=== PATIENT | female | born 1965 | race Caucasian/White ===

== ENCOUNTER 2021-06-26 08:26 | Inpatient (IN) | payer OTHER ==
[~2021-06-26] VITALS: Ht 165.1 cm; Wt 120.3 kg
[2021-06-26] MEDS ORDERED: DEXTROSE 50% SYRINGE 50 ML IV ONE (09:02)
[2021-06-26 09:15] LABS: Basophils # (auto) 0.1 10 ^3/uL (0-0.2); Hemoglobin 7.8 g/dL (12.2-16.2); Lymphocytes # (auto) 2.2 10 ^3/uL (0.4-5.4); Monocytes # (auto) 0.9 10 ^3/uL (0-1.3); White Blood Cell 10.3 10^3/uL (4.4-10.8)
[2021-06-26 09:17] LABS: Basophils % (auto) 0.8 % (0.0-2.0); Eosinophils # (auto) 0.1 10 ^3/uL (0-0.8); Eosinophils % (auto) 1.3 % (0.0-7.0); Hematocrit 24.6 % (36.0-46.0); Lymphocytes % (auto) 21.4 % (10.0-50.0); Mean Corpuscular Hemoglobin 27.9 pg (28.0-32.0); Mean Corpuscular Hgb Conc. 31.7 g/dL (32.0-36.0); Monocytes % (auto) 8.6 % (0.0-12.0); Neutrophils % (auto) 67.9 % (37.0-80.0); Red Blood Cells 2.79 10^6/uL (4.0-5.20); Red Cell Distribution Width 18.7 % (11.8-14.3)
[2021-06-26 09:21] LABS: Albumin 2.4 g/dL (3.4-5.0); Calcium 8.1 mg/dL (8.5-10.1); Potassium 3.2 mmol/L (3.5-5.1)
[2021-06-26 09:28] LABS: BUN/Creatinine Ratio 13.2; Bilirubin, Total 0.2 mg/dL (0.2-1.0); Total Protein 7.2 g/dL (6.4-8.2)
[2021-06-26] MEDS ORDERED: DEXTROSE (50%) 50ML SYRG IV ONE (09:30)
[2021-06-26] MEDS ORDERED: OCTREOTIDE ACETATE 100 MCG/ML VL SUBCUT ONE (09:30)
[2021-06-26] MEDS ORDERED: D5W/SOD CHL 0.45%/KCL 20MEQ 1,000 ML IV ONE (09:30)
[2021-06-26] MEDS ORDERED: METF500S PO (10:07)
[2021-06-26] MEDS ORDERED: ATOR20TA50 PO (10:08)
[2021-06-26] MEDS ORDERED: LABE100T4 PO (10:09)
[2021-06-26] MEDS ORDERED: COLCPOW2 PO (10:10)
[2021-06-26] MEDS ORDERED: ALLO300T2 PO (10:11)
[2021-06-26] MEDS ORDERED: GLYB2.5T8 PO (10:13)
[2021-06-26] MEDS ORDERED: HYDR-4798 PO (10:48)
[2021-06-26] MEDS ORDERED: DEXTROSE (50%) 50ML SYRG IV PRN (11:15)
[2021-06-26] MEDS ORDERED: hydrALAZINE HCL 20 MG/ML VL IV PRN (11:15)
[2021-06-26] MEDS ORDERED: NITROGLYCERIN 0.4 MG SL TAB SL PRN (11:15)
[2021-06-26] MEDS ORDERED: ACETAMINOPHEN 325 MG TAB PO PRN (11:15)
[2021-06-26] MEDS ORDERED: MORPHINE SULFATE INJECTION 2 MG/ML SYRG IV PRN (11:15)
[2021-06-26] MEDS ORDERED: ONDANSETRON HCL 4 MG/2 ML VIAL IV PRN (11:15)
[2021-06-26] MEDS ORDERED: POTASSIUM CHL 20 Meq TABLET PO ONE (11:15)
[2021-06-26] MEDS ORDERED: DOCUSATE SOD 100 MG CAP PO PRN (11:15)
[2021-06-26] MEDS: HYDROcodone-ACET 5/325MG TAB PO PRN ×3 (11:46→22:45)
[2021-06-26 12:09] LABS: Urine Bacteria NONE SEEN /hpf (None Seen); Urine Blood Negative /uL (Negative); Urine Specific Gravity 1.005 (1.001-1.035); Urine WBC 3 /hpf (0 - 5)
[2021-06-26] MEDS: ACCU-CHEK COMFORT CURVE STRIP VI SCH ×4 (12:56→23:43)
[2021-06-26] MEDS: InsuLIN REG 1unit/0.01ml Soln (100units/ml) SC SCH ×4 (12:57→23:42)
[2021-06-26] MEDS ORDERED: cloNIDine HCL 0.1 MG TAB PO ONE (16:15)
[2021-06-26] MEDS: LABETALOL HCL 200 MG TAB PO SCH ×2 (16:28→21:49)
[2021-06-26] MEDS: SODIUM CHLOR 0.9% PF (SALINE LOCK) 10ML VIAL/SYR IV SCH ×2 (16:31→21:47)
[2021-06-26] MEDS ORDERED: hydrALAZINE HCL 25 MG TAB PO PRN ×2 (18:15→18:30)
[2021-06-26] MEDS: ATORVASTATIN 20 MG TAB PO SCH (21:47)
[2021-06-26] MEDS: ALLOPURINOL 300 MG TAB PO SCH (21:49)
[2021-06-26] MEDS: HEPARIN SODIUM (PORCINE) 5000 UNITS/ML 1ML VIAL SC SCH (21:50)
[2021-06-26 22:00] VITALS: BP 186/101
[2021-06-26] MEDS ORDERED: LABETALOL HCL 200 MG TAB PO SCH (22:00)
[2021-06-27] MEDS: HYDROcodone-ACET 5/325MG TAB PO PRN ×3 (01:16→10:18)
[2021-06-27] MEDS: InsuLIN REG 1unit/0.01ml Soln (100units/ml) SC SCH ×5 (04:00→20:54)
[2021-06-27] MEDS: ACCU-CHEK COMFORT CURVE STRIP VI SCH ×5 (04:24→20:53)
[2021-06-27 05:00] VITALS: BP 166/91
[2021-06-27] MEDS: SODIUM CHLOR 0.9% PF (SALINE LOCK) 10ML VIAL/SYR IV SCH ×3 (05:49→22:06)
[2021-06-27 06:37] LABS: Basophils # (auto) 0.2 10 ^3/uL (0-0.2); Eosinophils # (auto) 0.3 10 ^3/uL (0-0.8); Hemoglobin 7.4 g/dL (12.2-16.2); Nucleated Red Blood Cells % 0.1 %
[2021-06-27 06:41] LABS: Eosinophils % (auto) 2.9 % (0.0-7.0); Lymphocytes % (auto) 36.3 % (10.0-50.0); Mean Corpuscular Hemoglobin 29.5 pg (28.0-32.0); Mean Corpuscular Hgb Conc. 32.1 g/dL (32.0-36.0); Mean Corpuscular Volume 91.9 fL (80.0-100.0); Monocytes % (auto) 8.7 % (0.0-12.0); Neutrophils # (auto) 5.5 10 ^3/uL (1.6-8.6); Neutrophils % (auto) 50.1 % (37.0-80.0); Red Cell Distribution Width 18.4 % (11.8-14.3); White Blood Cell 11.1 10^3/uL (4.4-10.8)
[2021-06-27 07:03] LABS: Albumin 2.4 g/dL (3.4-5.0); BUN/Creatinine Ratio 17.6; Calcium 8.5 mg/dL (8.5-10.1); Potassium 3.7 mmol/L (3.5-5.1)
[2021-06-27 07:10] LABS: Bilirubin, Total 0.3 mg/dL (0.2-1.0); Total Protein 6.7 g/dL (6.4-8.2)
[2021-06-27 08:00] VITALS: BP 211/108
[2021-06-27] MEDS: ALLOPURINOL 300 MG TAB PO SCH ×2 (10:13→22:07)
[2021-06-27] MEDS: FAMOTIDINE (10MG/ML) 2ML VL IV SCH (10:13)
[2021-06-27] MEDS: LABETALOL HCL 200 MG TAB PO SCH (10:14)
[2021-06-27] MEDS: HEPARIN SODIUM (PORCINE) 5000 UNITS/ML 1ML VIAL SC SCH ×2 (10:17→22:09)
[2021-06-27 12:00] VITALS: BP 179/97
[2021-06-27] MEDS ORDERED: LOSARTAN POTASSIUM 50 MG TAB PO ONE (14:00)
[2021-06-27] MEDS ORDERED: METOPROLOL TARTRATE 25 MG TAB PO ONE (14:00)
[2021-06-27] MEDS ORDERED: ENALAPRILAT 1.25 MG/ML-1ML VIAL IV PRN (14:15)
[2021-06-27] MEDS: OXYCODONE W/ ACETAMINOPHEN 5/325MG TABLET PO PRN (14:24)
[2021-06-27 16:00] VITALS: BP 171/95
[2021-06-27 16:18] LABS: % Iron Saturation 6.4 % (15-50)
[2021-06-27] MEDS ORDERED: NIFEdipine ER 30 MG TAB PO ONE (17:00)
[2021-06-27] MEDS: ATORVASTATIN 20 MG TAB PO SCH (22:07)
[2021-06-27] MEDS: METOPROLOL TARTRATE 25 MG TAB PO SCH (22:08)
[2021-06-27 22:36] VITALS: BP 179/100
[2021-06-28] MEDS: ACCU-CHEK COMFORT CURVE STRIP VI SCH ×4 (01:27→11:36)
[2021-06-28] MEDS: OXYCODONE W/ ACETAMINOPHEN 5/325MG TABLET PO PRN ×2 (02:19→14:21)
[2021-06-28 05:07] VITALS: BP 149/89
[2021-06-28] MEDS: InsuLIN REG 1unit/0.01ml Soln (100units/ml) SC SCH ×4 (05:14→11:36)
[2021-06-28] MEDS: HYDROcodone-ACET 5/325MG TAB PO PRN (05:15)
[2021-06-28] MEDS: SODIUM CHLOR 0.9% PF (SALINE LOCK) 10ML VIAL/SYR IV SCH ×2 (05:16→14:22)
[2021-06-28 05:57] LABS: Eosinophils # (auto) 0.4 10 ^3/uL (0-0.8); Red Cell Distribution Width 19.1 % (11.8-14.3)
[2021-06-28 06:00] LABS: Basophils # (auto) 0.1 10 ^3/uL (0-0.2); Eosinophils % (auto) 2.8 % (0.0-7.0); Hematocrit 28.1 % (36.0-46.0); Hemoglobin 8.9 g/dL (12.2-16.2); Lymphocytes # (auto) 2.4 10 ^3/uL (0.4-5.4); Lymphocytes % (auto) 19.1 % (10.0-50.0); Mean Corpuscular Hemoglobin 27.8 pg (28.0-32.0); Mean Corpuscular Hgb Conc. 31.6 g/dL (32.0-36.0); Mean Corpuscular Volume 88.1 fL (80.0-100.0); Monocytes % (auto) 7.4 % (0.0-12.0); Neutrophils # (auto) 8.9 10 ^3/uL (1.6-8.6); Neutrophils % (auto) 69.7 % (37.0-80.0); Red Blood Cells 3.19 10^6/uL (4.0-5.20); White Blood Cell 12.8 10^3/uL (4.4-10.8)
[2021-06-28 08:00] VITALS: BP 148/78
[2021-06-28] MEDS: FAMOTIDINE (10MG/ML) 2ML VL IV SCH (09:40)
[2021-06-28] MEDS: ALLOPURINOL 300 MG TAB PO SCH (09:41)
[2021-06-28] MEDS: METOPROLOL TARTRATE 25 MG TAB PO SCH (09:42)
[2021-06-28] MEDS ORDERED: NIFEdipine ER 30 MG TAB PO SCH (10:00)
[2021-06-28] MEDS ORDERED: LOSARTAN POTASSIUM 50 MG TAB PO SCH (10:00)
[2021-06-28 12:00] VITALS: BP 152/89
[2021-06-28] MEDS: HEPARIN SODIUM (PORCINE) 5000 UNITS/ML 1ML VIAL SC SCH (12:24)
[2021-06-28 13:57] LABS: Calcium 8.8 mg/dL (8.5-10.1); Magnesium 2.4 mg/dL (1.6-2.6); Potassium 3.8 mmol/L (3.5-5.1)
[2021-06-28 14:28] LABS: BUN/Creatinine Ratio 15.1
[2021-06-28] MEDS ORDERED: HYDR25TA5 PO (15:05)
[2021-06-28] MEDS ORDERED: LOSA-39 PO (15:05)
[2021-06-28] MEDS ORDERED: MET25T PO (15:05)
[2021-06-28] MEDS ORDERED: FER325T PO (15:05)
[2021-06-28] MEDS ORDERED: PANT40TA2 PO (15:05)
[2021-06-28] MEDS ORDERED: ASPI-378 PO (15:08)
[2021-06-28 16:00] VITALS: BP 152/89
[2021-06-28 16:53] VITALS: BP 152/89
[2021-06-30 09:55] LABS: Folate (Folic Acid) 9.66 ng/mL (5.38-24)
== END 2021-06-28 18:26 | disposition home or self-care (01) | DRG 638 ==
LOC: EDBD 08:26 → ER 08:26 → OVERFLOW 11:12 → WEST WING 14:50 → TELE-WESTW 06-27 17:12
PROVIDERS: ADMIT Nurse Practitioner Family; ATTEND Internal Medicine
DX: E11.649 Type 2 diabetes mellitus with hypoglycemia without coma (principal); R65.10 Systemic inflammatory response syndrome (SIRS) of non-infectious origin without acute organ dysfunction; Z68.41 Body mass index [BMI] 40.0-44.9, adult; I16.1 Hypertensive emergency; D75.839 Thrombocytosis, unspecified; D64.9 Anemia, unspecified; E87.6 Hypokalemia; E66.01 Morbid (severe) obesity due to excess calories; E88.09 Other disorders of plasma-protein metabolism, not elsewhere classified; Z20.822 Contact with and (suspected) exposure to COVID-19; I10 Essential (primary) hypertension; M10.9 Gout, unspecified; E78.5 Hyperlipidemia, unspecified; Z98.51 Tubal ligation status
CPT/HCPCS: 36415; 70450; 80048; 80053; 80061; 81001; 82306; 82607; 82746; 82962; 83036; 83540; 83550; 83735; 84443; 84484; 85025; 87426; 93005; 96361; 96374; G0378; J1815; J3490

== ENCOUNTER 2021-09-22 10:36 | Inpatient (IN) | payer OTHER ==
[~2021-09-22] VITALS: Ht 167.6 cm; Wt 114.8 kg
[~2021-09-22 10:36] MED LIST: ALLO300T2 PO; ATOR20TA50 PO; COLCPOW2 PO; HYDR-4798 PO; HYDR25TA5 PO; LOSA-39 PO; MET25T PO; METF500S PO; PANT40TA2 PO
[2021-09-22] MEDS ORDERED: SODIUM CHLORIDE 0.9% 1,000 ML IV ONE ×2 (10:45→13:45)
[2021-09-22 11:48] LABS: Hemoglobin 9.5 g/dL (12.2-16.2); Mean Corpuscular Hemoglobin 28.8 pg (28.0-32.0); Mean Corpuscular Hgb Conc. 31.6 g/dL (32.0-36.0)
[2021-09-22 12:01] LABS: Albumin 2.6 g/dL (3.4-5.0); Anion Gap 22 (5-15); Calcium 9.5 mg/dL (8.5-10.1); Carbon Dioxide 10 mmol/L (21-32); Chloride 92 mmol/L (98-107); Glucose 264 mg/dL (74-106); Magnesium 2.2 mg/dL (1.6-2.6); Potassium 3.5 mmol/L (3.5-5.1); Sodium 124 mmol/L (136-145)
[2021-09-22 12:06] LABS: Alanine Aminotransferase 19 U/L (13-56); Alkaline Phosphatase 98 U/L (45-117); Aspartate Aminotransferase 29 U/L (15-37); BUN/Creatinine Ratio 14.6; Bilirubin, Total 0.3 mg/dL (0.2-1.0); Blood Alcohol < 3.0 mg/dL (0-5); GFR African American 9 mL/min; GFR Non-African American 8 mL/min; Total Protein 7.7 g/dL (6.4-8.2)
[2021-09-22 12:22] LABS: Red Cell Distribution Width 22.1 % (11.8-14.3)
[2021-09-22 12:27] LABS: Basophils % (manual) 0 (0.0-2.0); Blast Cells 0; Eosinophils % (manual) 0 (0-7); Metamyelocytes % 0; Myelocytes % 0; Promyelocytes % 0; Reactive Lymphocytes 0
[2021-09-22 12:39] LABS: Blood Urea Nitrogen 88 mg/dL (7-18)
[2021-09-22 13:20] LABS: Band Neutrophils % (manual) 5; Lymphocytes % (manual) 1 (10.0-50.0); Monocytes % (manual) 1 (0-12)
[2021-09-22] MEDS ORDERED: AZITHROMYCIN 500MG/ 250ML 250 ML IV ONE (13:45)
[2021-09-22] MEDS ORDERED: cefTRIAXone 1GM/50ML D5W 50 ML IV ONE (13:45)
[2021-09-22 13:59] LABS: Urine Bacteria NONE SEEN /hpf (None Seen); Urine Blood 2+ /uL (Negative); Urine Specific Gravity 1.016 (1.001-1.035); Urine WBC 73 /hpf (0 - 5)
[2021-09-22] MEDS ORDERED: DEXTROSE (50%) 50ML SYRG IV PRN (15:30)
[2021-09-22] MEDS: SODIUM CHLORIDE 0.9% 1,000 ML IV SCH ×2 (15:30→23:30)
[2021-09-22] MEDS ORDERED: SODIUM CHLORIDE 0.9% 1,000 ML IV SCH (15:30)
[2021-09-22] MEDS ORDERED: ALBUTEROL SULF 2.5 MG/0.5ML(0.5%) NEB SOLN NEB PRN (16:00)
[2021-09-22 16:14] LABS: Cholesterol 165 mg/dL (< 200); HDL Cholesterol 27 mg/dL (40-59); LDL Cholesterol 95 mg/dL (< 100); Triglycerides 295 mg/dL (< 150)
[2021-09-22] MEDS ORDERED: NYSTATIN TOPICAL POWDER 15GM TOP ONE (16:15)
[2021-09-22] MEDS: ACCU-CHEK COMFORT CURVE STRIP VI SCH (17:51)
[2021-09-22] MEDS: InsuLIN REG 1unit/0.01ml Soln (100units/ml) SC SCH (18:07)
[2021-09-22 19:30] VITALS: BP 123/69
[2021-09-22 22:00] VITALS: BP 101/54
[2021-09-22] MEDS: NYSTATIN TOPICAL POWDER 15GM TOP SCH (22:00)
[2021-09-22 22:18] VITALS: BP 110/56
[2021-09-23] MEDS: ACCU-CHEK COMFORT CURVE STRIP VI SCH ×4 (00:33→18:01)
[2021-09-23] MEDS: HEPARIN SODIUM (PORCINE) 5000 UNITS/ML 1ML VIAL SC SCH ×3 (00:34→21:01)
[2021-09-23] MEDS: InsuLIN REG 1unit/0.01ml Soln (100units/ml) SC SCH ×4 (00:34→18:06)
[2021-09-23 05:00] VITALS: BP 126/59
[2021-09-23 06:03] LABS: Eosinophils # (auto) 0.1 10 ^3/uL (0-0.8); Lymphocytes # (auto) 1.2 10 ^3/uL (0.4-5.4); Monocytes # (auto) 1.2 10 ^3/uL (0-1.3)
[2021-09-23 06:07] LABS: Basophils # (auto) 0.1 10 ^3/uL (0-0.2); Basophils % (auto) 0.3 % (0.0-2.0); Eosinophils % (auto) 0.6 % (0.0-7.0); Hematocrit 26.7 % (36.0-46.0); Hemoglobin 8.5 g/dL (12.2-16.2); Mean Corpuscular Hemoglobin 28.9 pg (28.0-32.0); Mean Corpuscular Hgb Conc. 31.7 g/dL (32.0-36.0); Mean Corpuscular Volume 91.1 fL (80.0-100.0); Monocytes % (auto) 4.9 % (0.0-12.0); Neutrophils # (auto) 21.7 10 ^3/uL (1.6-8.6); Neutrophils % (auto) 89.2 % (37.0-80.0); Nucleated Red Blood Cells % 0.2 %; Red Blood Cells 2.93 10^6/uL (4.0-5.20); White Blood Cell 24.3 10^3/uL (4.4-10.8)
[2021-09-23 06:09] LABS: Red Cell Distribution Width 22.2 % (11.8-14.3)
[2021-09-23 06:18] LABS: Albumin 2.2 g/dL (3.4-5.0); Calcium 8.6 mg/dL (8.5-10.1)
[2021-09-23 06:21] LABS: BUN/Creatinine Ratio 13.9
[2021-09-23 06:29] LABS: Bilirubin, Total 0.2 mg/dL (0.2-1.0); Total Protein 6.5 g/dL (6.4-8.2)
[2021-09-23 09:00] VITALS: BP 138/73
[2021-09-23] MEDS: cefTRIAXone 1GM/50ML D5W 50 ML IV SCH (09:45)
[2021-09-23] MEDS: AZITHROMYCIN 500MG/ 250ML 250 ML IV SCH (11:10)
[2021-09-23] MEDS: NYSTATIN TOPICAL POWDER 15GM TOP SCH ×2 (11:11→21:01)
[2021-09-23] MEDS: SODIUM CHLORIDE 0.9% 1,000 ML IV SCH ×3 (11:11→23:30)
[2021-09-23] MEDS ORDERED: PERCOT PO (12:24)
[2021-09-23] MEDS ORDERED: LOSA-69 PO (12:24)
[2021-09-23] MEDS ORDERED: COLC1TAB3 PO (12:24)
[2021-09-23] MEDS ORDERED: POTASSIUM CHL 20 Meq TABLET PO ONE (12:45)
[2021-09-23 13:00] VITALS: BP 151/79
[2021-09-23] MEDS: HYDROcodone-ACET 5/325MG TAB PO PRN (13:48)
[2021-09-23 17:00] VITALS: BP 136/76
[2021-09-23] MEDS: SUCRALFATE 1 GM/10 ML ORAL SUSP PO SCH ×2 (18:01→21:01)
[2021-09-23] MEDS: PANTOPRAZOLE 40 MG TAB PO SCH (21:01)
[2021-09-23 22:00] VITALS: BP 137/61
[2021-09-24 05:00] VITALS: BP 123/81
[2021-09-24] MEDS: SUCRALFATE 1 GM/10 ML ORAL SUSP PO SCH ×4 (06:00→21:21)
[2021-09-24] MEDS: ACCU-CHEK COMFORT CURVE STRIP VI SCH ×4 (06:00→17:42)
[2021-09-24] MEDS: InsuLIN REG 1unit/0.01ml Soln (100units/ml) SC SCH ×4 (06:02→17:43)
[2021-09-24] MEDS: HYDROcodone-ACET 5/325MG TAB PO PRN (07:08)
[2021-09-24 09:00] VITALS: BP 154/84
[2021-09-24] MEDS: cefTRIAXone 1GM/50ML D5W 50 ML IV SCH (09:19)
[2021-09-24] MEDS: PANTOPRAZOLE 40 MG TAB PO SCH ×2 (09:19→21:21)
[2021-09-24] MEDS: HEPARIN SODIUM (PORCINE) 5000 UNITS/ML 1ML VIAL SC SCH ×2 (09:20→21:23)
[2021-09-24] MEDS: NYSTATIN TOPICAL POWDER 15GM TOP SCH ×2 (09:21→21:30)
[2021-09-24] MEDS: SODIUM CHLORIDE 0.9% 1,000 ML IV SCH ×2 (09:22→17:44)
[2021-09-24] MEDS: AZITHROMYCIN 500MG/ 250ML 250 ML IV SCH (12:13)
[2021-09-24] MEDS: OXYCODONE W/ ACETAMINOPHEN 5/325MG TABLET PO PRN ×3 (12:15→20:56)
[2021-09-24 12:35] VITALS: BP 154/77
[2021-09-24 12:53] LABS: Calcium 8.3 mg/dL (8.5-10.1)
[2021-09-24 12:55] LABS: BUN/Creatinine Ratio 16.5
[2021-09-24 13:06] LABS: Potassium 2.7 mmol/L (3.5-5.1)
[2021-09-24] MEDS ORDERED: POTASSIUM CHLORIDE 60 MEQ, LIDOCAINE 1% (LOCAL ANESTH.) 6 ML in SODIUM CHL 0.9% 500 ML IV ONE (13:30)
[2021-09-24 16:42] VITALS: BP 140/76
[2021-09-24 22:00] VITALS: BP 163/80
[2021-09-25] MEDS: ACCU-CHEK COMFORT CURVE STRIP VI SCH ×5 (00:04→23:27)
[2021-09-25] MEDS: SODIUM CHLORIDE 0.9% 1,000 ML IV SCH ×4 (02:45→23:02)
[2021-09-25] MEDS: OXYCODONE W/ ACETAMINOPHEN 5/325MG TABLET PO PRN ×4 (03:21→23:27)
[2021-09-25 04:00] VITALS: BP 131/67
[2021-09-25 05:00] VITALS: BP 131/67
[2021-09-25] MEDS: InsuLIN REG 1unit/0.01ml Soln (100units/ml) SC SCH ×5 (06:00→18:34)
[2021-09-25] MEDS: SUCRALFATE 1 GM/10 ML ORAL SUSP PO SCH ×4 (07:00→22:45)
[2021-09-25 07:08] LABS: Basophils # (auto) 0.1 10 ^3/uL (0-0.2)
[2021-09-25 07:11] LABS: Basophils % (auto) 0.7 % (0.0-2.0); Eosinophils # (auto) 0.5 10 ^3/uL (0-0.8); Hematocrit 23.1 % (36.0-46.0); Hemoglobin 7.3 g/dL (12.2-16.2); Lymphocytes # (auto) 0.9 10 ^3/uL (0.4-5.4); Lymphocytes % (auto) 5.7 % (10.0-50.0); Mean Corpuscular Hemoglobin 29.3 pg (28.0-32.0); Mean Corpuscular Hgb Conc. 31.7 g/dL (32.0-36.0); Mean Corpuscular Volume 92.3 fL (80.0-100.0); Monocytes # (auto) 1.6 10 ^3/uL (0-1.3); Monocytes % (auto) 9.8 % (0.0-12.0); Neutrophils # (auto) 13.3 10 ^3/uL (1.6-8.6); Neutrophils % (auto) 80.8 % (37.0-80.0); White Blood Cell 16.5 10^3/uL (4.4-10.8)
[2021-09-25 07:40] LABS: Albumin 2.1 g/dL (3.4-5.0); Calcium 9.1 mg/dL (8.5-10.1); Potassium 3.2 mmol/L (3.5-5.1)
[2021-09-25 07:42] LABS: BUN/Creatinine Ratio 19.1
[2021-09-25 07:45] LABS: Bilirubin, Total 0.2 mg/dL (0.2-1.0); Total Protein 6.5 g/dL (6.4-8.2)
[2021-09-25 08:02] LABS: Red Cell Distribution Width 22.3 % (11.8-14.3)
[2021-09-25 08:04] LABS: INR 0.97 (0.9-1.15)
[2021-09-25] MEDS ORDERED: MORPHINE SULFATE 4 MG/ML SYR/VIAL IV PRN (08:15)
[2021-09-25] MEDS ORDERED: METOCLOPRAMIDE HCL 5MG/ml INJ 2ml VIAL IV PRN (08:15)
[2021-09-25] MEDS ORDERED: HYDROmorphone HCL 2 MG/ML VL/or syr IV PRN (08:15)
[2021-09-25 08:40] VITALS: BP 167/88
[2021-09-25] MEDS: cefTRIAXone 1GM/50ML D5W 50 ML IV SCH (09:00)
[2021-09-25] MEDS ORDERED: ONDANSETRON HCL 4 MG/2 ML VIAL ONE (09:02)
[2021-09-25] MEDS ORDERED: PROPOFOL 10 MG/ML 20 ML IV ONE (09:02)
[2021-09-25] MEDS ORDERED: SODIUM CHLORIDE LOCK 10 ML ONE (09:02)
[2021-09-25] MEDS ORDERED: DexAMETHasone SOD PHOS 10MG/1ML VIAL INJ ONE (09:02)
[2021-09-25] MEDS ORDERED: MIDAZOLAM HCL 2MG/2ML 2ml VIAL (1mg/ml) ONE (09:02)
[2021-09-25] MEDS ORDERED: fentaNYL CITRATE 100 MCG/2 ML VL ONE (09:02)
[2021-09-25] MEDS: NYSTATIN TOPICAL POWDER 15GM TOP SCH ×2 (10:00→23:02)
[2021-09-25] MEDS: HEPARIN SODIUM (PORCINE) 5000 UNITS/ML 1ML VIAL SC SCH ×2 (10:00→22:47)
[2021-09-25] MEDS: AZITHROMYCIN 500MG/ 250ML 250 ML IV SCH (10:00)
[2021-09-25] MEDS: PANTOPRAZOLE 40 MG TAB PO SCH ×2 (11:16→22:45)
[2021-09-25] MEDS: SODIUM BICARBONATE 650 MG TAB PO SCH ×3 (11:17→22:45)
[2021-09-25] MEDS: POTASSIUM CHL 20MEQ/100ML 100 ML IV SCH ×2 (11:17→14:41)
[2021-09-25 12:50] VITALS: BP 167/91
[2021-09-25 16:45] VITALS: BP 165/91
[2021-09-25 21:44] VITALS: BP 145/81
[2021-09-26] MEDS: InsuLIN REG 1unit/0.01ml Soln (100units/ml) SC SCH ×5 (00:11→23:45)
[2021-09-26 04:38] VITALS: BP 142/76
[2021-09-26] MEDS: SODIUM BICARBONATE 650 MG TAB PO SCH ×4 (05:33→22:10)
[2021-09-26] MEDS: ACCU-CHEK COMFORT CURVE STRIP VI SCH ×4 (05:33→23:46)
[2021-09-26] MEDS: OXYCODONE W/ ACETAMINOPHEN 5/325MG TABLET PO PRN ×4 (05:34→23:28)
[2021-09-26] MEDS: SUCRALFATE 1 GM/10 ML ORAL SUSP PO SCH ×4 (06:19→22:10)
[2021-09-26] MEDS: SODIUM CHLORIDE 0.9% 1,000 ML IV SCH ×3 (06:20→22:10)
[2021-09-26 07:05] LABS: Protein, Urine 32.1 mg/dL (0.0-11.9)
[2021-09-26 09:00] VITALS: BP 133/85
[2021-09-26] MEDS: cefTRIAXone 1GM/50ML D5W 50 ML IV SCH (10:31)
[2021-09-26] MEDS: AZITHROMYCIN 500MG/ 250ML 250 ML IV SCH (10:31)
[2021-09-26] MEDS: PANTOPRAZOLE 40 MG TAB PO SCH ×2 (10:33→22:10)
[2021-09-26] MEDS: FLUCONAZOLE 100 MG TAB PO SCH (10:33)
[2021-09-26] MEDS: NYSTATIN TOPICAL POWDER 15GM TOP SCH ×2 (10:34→22:10)
[2021-09-26] MEDS: HEPARIN SODIUM (PORCINE) 5000 UNITS/ML 1ML VIAL SC SCH ×2 (10:42→22:21)
[2021-09-26] MEDS: ONDANSETRON HCL 4 MG/2 ML VIAL IV PRN ×3 (12:07→23:28)
[2021-09-26 12:45] LABS: BUN/Creatinine Ratio 18.7; Calcium 8.6 mg/dL (8.5-10.1)
[2021-09-26 13:00] VITALS: BP 141/75
[2021-09-26 17:00] VITALS: BP 157/90
[2021-09-26 21:33] VITALS: BP 149/90
[2021-09-27 05:00] VITALS: BP 160/89
[2021-09-27 05:35] LABS: Hematocrit 22.4 % (36.0-46.0); Hemoglobin 7.5 g/dL (12.2-16.2); Mean Corpuscular Hemoglobin 30.9 pg (28.0-32.0); Mean Corpuscular Hgb Conc. 33.7 g/dL (32.0-36.0); Mean Corpuscular Volume 91.6 fL (80.0-100.0); Red Blood Cells 2.44 10^6/uL (4.0-5.20); White Blood Cell 17.2 10^3/uL (4.4-10.8)
[2021-09-27] MEDS: ONDANSETRON HCL 4 MG/2 ML VIAL IV PRN ×3 (05:46→18:42)
[2021-09-27] MEDS: SODIUM BICARBONATE 650 MG TAB PO SCH ×4 (05:46→21:49)
[2021-09-27] MEDS: OXYCODONE W/ ACETAMINOPHEN 5/325MG TABLET PO PRN ×3 (05:46→18:41)
[2021-09-27 05:47] LABS: Red Cell Distribution Width 21.9 % (11.8-14.3)
[2021-09-27] MEDS: SUCRALFATE 1 GM/10 ML ORAL SUSP PO SCH ×4 (05:47→21:49)
[2021-09-27 05:48] LABS: Basophils % (manual) 0 (0.0-2.0); Blast Cells 0; Eosinophils % (manual) 0 (0-7); Myelocytes % 0; Promyelocytes % 0; Reactive Lymphocytes 0
[2021-09-27] MEDS: ACCU-CHEK COMFORT CURVE STRIP VI SCH ×3 (05:58→16:56)
[2021-09-27] MEDS: InsuLIN REG 1unit/0.01ml Soln (100units/ml) SC SCH ×3 (05:58→18:00)
[2021-09-27 05:59] VITALS: BP 153/87
[2021-09-27 06:10] LABS: Potassium 3.4 mmol/L (3.5-5.1)
[2021-09-27 06:15] LABS: BUN/Creatinine Ratio 17.3; Calcium 8.8 mg/dL (8.5-10.1)
[2021-09-27 06:18] LABS: Bilirubin, Total 0.2 mg/dL (0.2-1.0); Total Protein 6.4 g/dL (6.4-8.2)
[2021-09-27] MEDS: SODIUM CHLORIDE 0.9% 1,000 ML IV SCH ×3 (07:00→21:50)
[2021-09-27 07:57] LABS: Band Neutrophils % (manual) 7; Lymphocytes % (manual) 10 (10.0-50.0); Metamyelocytes % 1; Monocytes % (manual) 8 (0-12)
[2021-09-27 09:00] VITALS: BP_SYST 106; BP_SYST 148; BP_DIAS 69; BP_DIAS 91
[2021-09-27] MEDS: NYSTATIN TOPICAL POWDER 15GM TOP SCH ×2 (10:00→21:50)
[2021-09-27] MEDS: PANTOPRAZOLE 40 MG TAB PO SCH ×2 (10:44→21:49)
[2021-09-27] MEDS: FLUCONAZOLE 100 MG TAB PO SCH (10:45)
[2021-09-27] MEDS: cefTRIAXone 1GM/50ML D5W 50 ML IV SCH (10:46)
[2021-09-27] MEDS: AZITHROMYCIN 500MG/ 250ML 250 ML IV SCH (10:47)
[2021-09-27] MEDS: HEPARIN SODIUM (PORCINE) 5000 UNITS/ML 1ML VIAL SC SCH ×2 (11:56→21:55)
[2021-09-27 13:00] VITALS: BP 173/97
[2021-09-27 17:00] VITALS: BP 161/88
[2021-09-27 22:00] VITALS: BP 165/89
[2021-09-28] MEDS: ONDANSETRON HCL 4 MG/2 ML VIAL IV PRN ×4 (00:29→23:40)
[2021-09-28] MEDS: OXYCODONE W/ ACETAMINOPHEN 5/325MG TABLET PO PRN ×5 (00:29→23:40)
[2021-09-28] MEDS: ACCU-CHEK COMFORT CURVE STRIP VI SCH ×5 (00:29→23:27)
[2021-09-28 00:31] VITALS: BP 154/86
[2021-09-28 05:17] VITALS: BP 149/82
[2021-09-28] MEDS: SODIUM BICARBONATE 650 MG TAB PO SCH ×4 (05:58→21:11)
[2021-09-28] MEDS: SUCRALFATE 1 GM/10 ML ORAL SUSP PO SCH ×4 (05:59→21:12)
[2021-09-28] MEDS: SODIUM CHLORIDE 0.9% 1,000 ML IV SCH ×2 (05:59→15:30)
[2021-09-28] MEDS: InsuLIN REG 1unit/0.01ml Soln (100units/ml) SC SCH ×5 (06:00→23:41)
[2021-09-28 09:00] VITALS: BP 160/86
[2021-09-28] MEDS: cefTRIAXone 1GM/50ML D5W 50 ML IV SCH (09:41)
[2021-09-28] MEDS: AZITHROMYCIN 500MG/ 250ML 250 ML IV SCH (09:41)
[2021-09-28] MEDS: FLUCONAZOLE 100 MG TAB PO SCH (09:42)
[2021-09-28] MEDS: PANTOPRAZOLE 40 MG TAB PO SCH ×2 (09:42→21:12)
[2021-09-28] MEDS: HEPARIN SODIUM (PORCINE) 5000 UNITS/ML 1ML VIAL SC SCH ×2 (09:43→21:13)
[2021-09-28] MEDS: NYSTATIN TOPICAL POWDER 15GM TOP SCH ×2 (09:47→21:13)
[2021-09-28 12:42] VITALS: BP 161/73
[2021-09-28 17:00] VITALS: BP 111/81
[2021-09-28 22:00] VITALS: BP 151/96
[2021-09-29] MEDS: SODIUM CHLORIDE 0.9% 1,000 ML IV SCH ×4 (00:40→23:30)
[2021-09-29 05:00] VITALS: BP 159/99
[2021-09-29] MEDS: ONDANSETRON HCL 4 MG/2 ML VIAL IV PRN ×4 (05:31→23:57)
[2021-09-29] MEDS: SODIUM BICARBONATE 650 MG TAB PO SCH ×4 (05:31→22:25)
[2021-09-29] MEDS: ACCU-CHEK COMFORT CURVE STRIP VI SCH ×4 (05:39→23:56)
[2021-09-29] MEDS: InsuLIN REG 1unit/0.01ml Soln (100units/ml) SC SCH ×4 (05:39→23:56)
[2021-09-29] MEDS: OXYCODONE W/ ACETAMINOPHEN 5/325MG TABLET PO PRN ×4 (05:40→23:58)
[2021-09-29 05:41] LABS: BUN/Creatinine Ratio 12.6; Calcium 8.5 mg/dL (8.5-10.1); Potassium 3.4 mmol/L (3.5-5.1)
[2021-09-29] MEDS: SUCRALFATE 1 GM/10 ML ORAL SUSP PO SCH ×4 (06:03→22:25)
[2021-09-29] MEDS: cefTRIAXone 1GM/50ML D5W 50 ML IV SCH (08:43)
[2021-09-29 09:00] VITALS: BP 168/92
[2021-09-29] MEDS: PANTOPRAZOLE 40 MG TAB PO SCH ×2 (10:48→22:26)
[2021-09-29] MEDS: AZITHROMYCIN 500MG/ 250ML 250 ML IV SCH (10:49)
[2021-09-29] MEDS: FLUCONAZOLE 100 MG TAB PO SCH (10:49)
[2021-09-29] MEDS: NYSTATIN TOPICAL POWDER 15GM TOP SCH ×2 (10:50→22:29)
[2021-09-29] MEDS: HEPARIN SODIUM (PORCINE) 5000 UNITS/ML 1ML VIAL SC SCH ×2 (10:52→22:28)
[2021-09-29] MEDS: cloNIDine HCL 0.1 MG TAB PO PRN (10:55)
[2021-09-29 13:00] VITALS: BP 160/88
[2021-09-29 17:00] VITALS: BP 158/87
[2021-09-29] MEDS: POTASSIUM CHL 20MEQ/100ML 100 ML IV SCH ×2 (17:15→18:47)
[2021-09-29 22:00] VITALS: BP 132/77
[2021-09-29] MEDS: metroNIDAZOLE 500MG/100ML 100 ML IV SCH (22:25)
[2021-09-30] MEDS: SODIUM CHLORIDE 0.9% 1,000 ML IV SCH ×3 (04:53→22:00)
[2021-09-30 05:00] VITALS: BP 137/67
[2021-09-30] MEDS: metroNIDAZOLE 500MG/100ML 100 ML IV SCH ×3 (05:45→21:40)
[2021-09-30] MEDS: SODIUM BICARBONATE 650 MG TAB PO SCH ×4 (05:46→21:40)
[2021-09-30] MEDS: OXYCODONE W/ ACETAMINOPHEN 5/325MG TABLET PO PRN ×3 (05:46→23:30)
[2021-09-30] MEDS: ONDANSETRON HCL 4 MG/2 ML VIAL IV PRN ×3 (05:47→23:30)
[2021-09-30] MEDS: ACCU-CHEK COMFORT CURVE STRIP VI SCH ×4 (05:47→23:50)
[2021-09-30] MEDS: InsuLIN REG 1unit/0.01ml Soln (100units/ml) SC SCH ×4 (05:48→23:50)
[2021-09-30] MEDS: SUCRALFATE 1 GM/10 ML ORAL SUSP PO SCH ×4 (06:47→21:40)
[2021-09-30 09:00] VITALS: BP 163/88
[2021-09-30] MEDS: HEPARIN SODIUM (PORCINE) 5000 UNITS/ML 1ML VIAL SC SCH ×2 (10:00→21:42)
[2021-09-30] MEDS: FLUCONAZOLE 100 MG TAB PO SCH (10:33)
[2021-09-30] MEDS: cefTRIAXone 1GM/50ML D5W 50 ML IV SCH (10:33)
[2021-09-30] MEDS: NYSTATIN TOPICAL POWDER 15GM TOP SCH ×2 (10:34→21:41)
[2021-09-30] MEDS: PANTOPRAZOLE 40 MG TAB PO SCH ×2 (10:34→21:40)
[2021-09-30] MEDS ORDERED: ceFAZolin 1GM/50ML 100 ML IV ONE (12:03)
[2021-09-30 13:00] VITALS: BP 167/89
[2021-09-30] MEDS ORDERED: BUPIVACAINE W/ EPINEPH 0.25% INJ 50ML MDV ONE (13:41)
[2021-09-30] MEDS ORDERED: fentaNYL CITRATE 5 ML ONE (13:49)
[2021-09-30] MEDS ORDERED: MIDAZOLAM HCL 2MG/2ML 2ml VIAL (1mg/ml) ONE (13:49)
[2021-09-30] MEDS ORDERED: ROCURONIUM 10MG/ML 10ML VIAL IV ONE (13:50)
[2021-09-30] MEDS ORDERED: LIDOCAINE 2% (LOCAL ANESTH.) PF 5ml SDV ONE (13:50)
[2021-09-30] MEDS ORDERED: PROPOFOL 10 MG/ML 20 ML IV ONE (13:50)
[2021-09-30] MEDS ORDERED: ONDANSETRON HCL 4 MG/2 ML VIAL ONE (13:50)
[2021-09-30] MEDS ORDERED: SUCCINYLCHOLINE CHLORIDE 20 MG/ML 10ML VIAL IV ONE (13:54)
[2021-09-30] MEDS: D5W/SOD CHL 0.45%/KCL 20MEQ 1,000 ML IV SCH (15:00)
[2021-09-30] MEDS ORDERED: ONDANSETRON HCL 4 MG/2 ML VIAL IV PRN (15:15)
[2021-09-30] MEDS ORDERED: HYDROmorphone HCL 2 MG/ML VL/or syr IV PRN ×2 (15:15)
[2021-09-30] MEDS ORDERED: HYDROmorphone HCL 2 MG/ML VL/or syr ONE (15:44)
[2021-09-30] MEDS ORDERED: HYDROmorphone HCL 2 MG/ML VL/or syr IV ONE (16:00)
[2021-09-30] MEDS: cloNIDine HCL 0.1 MG TAB PO PRN (21:40)
[2021-09-30 22:00] VITALS: BP 177/94
[2021-09-30 22:30] LABS: Basophils # (auto) 0.3 10 ^3/uL (0-0.2); Basophils % (auto) 1.5 % (0.0-2.0); Eosinophils # (auto) 0.1 10 ^3/uL (0-0.8); Eosinophils % (auto) 0.7 % (0.0-7.0); Hemoglobin 7.5 g/dL (12.2-16.2); Lymphocytes # (auto) 1.5 10 ^3/uL (0.4-5.4); Lymphocytes % (auto) 8.4 % (10.0-50.0); Mean Corpuscular Hemoglobin 29.1 pg (28.0-32.0); Mean Corpuscular Hgb Conc. 31.3 g/dL (32.0-36.0); Mean Corpuscular Volume 92.9 fL (80.0-100.0); Monocytes # (auto) 0.9 10 ^3/uL (0-1.3); Monocytes % (auto) 4.8 % (0.0-12.0); Neutrophils # (auto) 15.1 10 ^3/uL (1.6-8.6); Neutrophils % (auto) 84.6 % (37.0-80.0); Nucleated Red Blood Cells % 0.2 %; Red Blood Cells 2.59 10^6/uL (4.0-5.20); Red Cell Distribution Width 22.2 % (11.8-14.3); White Blood Cell 17.8 10^3/uL (4.4-10.8)
[2021-09-30 22:48] LABS: BUN/Creatinine Ratio 9.6; Calcium 8.6 mg/dL (8.5-10.1); Potassium 3.9 mmol/L (3.5-5.1)
[2021-10-01] VITALS (8 sets, daily range): BP systolic 129–178; BP diastolic 62–89
[2021-10-01] MEDS: ACETAMINOPHEN 325 MG TAB PO PRN (01:00)
[2021-10-01] MEDS: D5W/SOD CHL 0.45%/KCL 20MEQ 1,000 ML IV SCH ×4 (03:00→20:31)
[2021-10-01] MEDS: ONDANSETRON HCL 4 MG/2 ML VIAL IV PRN ×3 (04:30→22:58)
[2021-10-01] MEDS: OXYCODONE W/ ACETAMINOPHEN 5/325MG TABLET PO PRN ×3 (05:32→23:51)
[2021-10-01] MEDS: SODIUM BICARBONATE 650 MG TAB PO SCH ×4 (05:33→22:17)
[2021-10-01] MEDS: metroNIDAZOLE 500MG/100ML 100 ML IV SCH ×3 (05:33→22:17)
[2021-10-01] MEDS: ACCU-CHEK COMFORT CURVE STRIP VI SCH ×4 (05:33→23:49)
[2021-10-01] MEDS: SUCRALFATE 1 GM/10 ML ORAL SUSP PO SCH ×4 (05:51→22:17)
[2021-10-01] MEDS: InsuLIN REG 1unit/0.01ml Soln (100units/ml) SC SCH ×4 (06:02→23:50)
[2021-10-01] MEDS: SODIUM CHLORIDE 0.9% 1,000 ML IV SCH ×3 (10:31→22:22)
[2021-10-01] MEDS: NYSTATIN TOPICAL POWDER 15GM TOP SCH ×2 (10:32→22:19)
[2021-10-01] MEDS: cefTRIAXone 1GM/50ML D5W 50 ML IV SCH (10:32)
[2021-10-01] MEDS: PANTOPRAZOLE 40 MG TAB PO SCH ×2 (10:32→22:18)
[2021-10-01 10:41] LABS: White Blood Cell 16.8 10^3/uL (4.4-10.8)
[2021-10-01 10:45] LABS: Hematocrit 20.2 % (36.0-46.0); Mean Corpuscular Hgb Conc. 32.5 g/dL (32.0-36.0); Mean Corpuscular Volume 92.3 fL (80.0-100.0); Red Blood Cells 2.19 10^6/uL (4.0-5.20)
[2021-10-01 10:55] LABS: Hemoglobin 6.6 g/dL (12.2-16.2)
[2021-10-01 10:56] LABS: Band Neutrophils % (manual) 0; Basophils % (manual) 0 (0.0-2.0); Blast Cells 0; Eosinophils % (manual) 0 (0-7); Metamyelocytes % 0; Myelocytes % 0; Promyelocytes % 0; Reactive Lymphocytes 0; Red Cell Distribution Width 21.3 % (11.8-14.3)
[2021-10-01 11:51] LABS: Lymphocytes % (manual) 9 (10.0-50.0); Monocytes % (manual) 7 (0-12)
[2021-10-01] MEDS: HEPARIN SODIUM (PORCINE) 5000 UNITS/ML 1ML VIAL SC SCH ×2 (12:41→22:18)
[2021-10-01] MEDS ORDERED: FLUCONAZOLE 100 MG TAB PO ONE (14:00)
[2021-10-01 16:05] LABS: INR 1.13 (0.9-1.15); Partial Thromboplastin Time 30.2 sec (23.6-33.0)
[2021-10-02] MEDS: ONDANSETRON HCL 4 MG/2 ML VIAL IV PRN ×5 (04:19→22:24)
[2021-10-02] MEDS: cloNIDine HCL 0.1 MG TAB PO PRN ×2 (04:38→09:52)
[2021-10-02 05:00] VITALS: BP 170/89
[2021-10-02] MEDS: OXYCODONE W/ ACETAMINOPHEN 5/325MG TABLET PO PRN ×3 (05:40→18:56)
[2021-10-02] MEDS: SODIUM BICARBONATE 650 MG TAB PO SCH ×4 (05:58→22:21)
[2021-10-02] MEDS: ACCU-CHEK COMFORT CURVE STRIP VI SCH ×3 (05:58→18:00)
[2021-10-02] MEDS: metroNIDAZOLE 500MG/100ML 100 ML IV SCH ×3 (05:58→22:21)
[2021-10-02] MEDS: SUCRALFATE 1 GM/10 ML ORAL SUSP PO SCH ×4 (05:59→22:21)
[2021-10-02] MEDS: InsuLIN REG 1unit/0.01ml Soln (100units/ml) SC SCH ×3 (06:11→18:54)
[2021-10-02] MEDS: SODIUM CHLORIDE 0.9% 1,000 ML IV SCH ×3 (07:30→23:30)
[2021-10-02] MEDS: D5W/SOD CHL 0.45%/KCL 20MEQ 1,000 ML IV SCH ×2 (08:40→17:00)
[2021-10-02] MEDS: FLUCONAZOLE 100 MG TAB PO SCH (09:42)
[2021-10-02] MEDS: PANTOPRAZOLE 40 MG TAB PO SCH ×2 (09:42→22:22)
[2021-10-02] MEDS: NYSTATIN TOPICAL POWDER 15GM TOP SCH ×2 (09:43→22:23)
[2021-10-02] MEDS: cefTRIAXone 1GM/50ML D5W 50 ML IV SCH (09:55)
[2021-10-02 10:15] VITALS: BP 167/85
[2021-10-02] MEDS: HEPARIN SODIUM (PORCINE) 5000 UNITS/ML 1ML VIAL SC SCH ×2 (10:32→22:23)
[2021-10-02 10:43] LABS: Basophils # (auto) 0.1 10 ^3/uL (0-0.2); Basophils % (auto) 0.5 % (0.0-2.0); Eosinophils # (auto) 0.2 10 ^3/uL (0-0.8); Nucleated Red Blood Cells % 0.1 %
[2021-10-02 10:46] LABS: Hemoglobin 7.4 g/dL (12.2-16.2); Lymphocytes # (auto) 1.2 10 ^3/uL (0.4-5.4); Mean Corpuscular Hemoglobin 29.7 pg (28.0-32.0); Mean Corpuscular Hgb Conc. 32.3 g/dL (32.0-36.0); Monocytes # (auto) 1.1 10 ^3/uL (0-1.3); Monocytes % (auto) 6.6 % (0.0-12.0); Neutrophils # (auto) 14.3 10 ^3/uL (1.6-8.6); Neutrophils % (auto) 84.9 % (37.0-80.0); White Blood Cell 16.8 10^3/uL (4.4-10.8)
[2021-10-02 11:13] LABS: Red Cell Distribution Width 20.2 % (11.8-14.3)
[2021-10-02] MEDS: SODIUM FERR GLUC 62.5MG/5ML 125 MG in SODIUM CHL 0.9% 100 ML IV SCH (11:40)
[2021-10-02 13:11] VITALS: BP 183/96
[2021-10-02 17:39] VITALS: BP 197/92
[2021-10-02 22:00] VITALS: BP 162/87
[2021-10-03] MEDS: ACCU-CHEK COMFORT CURVE STRIP VI SCH ×4 (00:21→18:43)
[2021-10-03] MEDS: InsuLIN REG 1unit/0.01ml Soln (100units/ml) SC SCH ×4 (00:22→18:43)
[2021-10-03] MEDS: OXYCODONE W/ ACETAMINOPHEN 5/325MG TABLET PO PRN ×4 (00:23→18:45)
[2021-10-03] MEDS: D5W/SOD CHL 0.45%/KCL 20MEQ 1,000 ML IV SCH ×3 (01:38→18:44)
[2021-10-03] MEDS: ONDANSETRON HCL 4 MG/2 ML VIAL IV PRN ×3 (03:51→18:44)
[2021-10-03 05:00] VITALS: BP 175/91
[2021-10-03] MEDS: cloNIDine HCL 0.1 MG TAB PO PRN ×2 (05:03→08:57)
[2021-10-03] MEDS: SODIUM BICARBONATE 650 MG TAB PO SCH ×4 (06:12→21:56)
[2021-10-03] MEDS: metroNIDAZOLE 500MG/100ML 100 ML IV SCH ×3 (06:13→21:55)
[2021-10-03] MEDS: SUCRALFATE 1 GM/10 ML ORAL SUSP PO SCH ×4 (06:13→21:55)
[2021-10-03 06:35] LABS: Basophils # (auto) 0.1 10 ^3/uL (0-0.2); Mean Corpuscular Hgb Conc. 32.5 g/dL (32.0-36.0); Mean Corpuscular Volume 92.2 fL (80.0-100.0)
[2021-10-03 06:38] LABS: Basophils % (auto) 0.8 % (0.0-2.0); Eosinophils # (auto) 0.3 10 ^3/uL (0-0.8); Eosinophils % (auto) 1.8 % (0.0-7.0); Hematocrit 22.6 % (36.0-46.0); Hemoglobin 7.3 g/dL (12.2-16.2); Lymphocytes % (auto) 6.8 % (10.0-50.0); Monocytes # (auto) 1.2 10 ^3/uL (0-1.3); Monocytes % (auto) 8.1 % (0.0-12.0); Neutrophils # (auto) 12.5 10 ^3/uL (1.6-8.6); Neutrophils % (auto) 82.5 % (37.0-80.0); Red Blood Cells 2.45 10^6/uL (4.0-5.20); Red Cell Distribution Width 20.2 % (11.8-14.3); White Blood Cell 15.1 10^3/uL (4.4-10.8)
[2021-10-03] MEDS: cefTRIAXone 1GM/50ML D5W 50 ML IV SCH (08:55)
[2021-10-03] MEDS: ACETAMINOPHEN 325 MG TAB PO PRN (08:58)
[2021-10-03 09:00] VITALS: BP 174/99
[2021-10-03] MEDS: FLUCONAZOLE 100 MG TAB PO SCH (09:29)
[2021-10-03] MEDS: PANTOPRAZOLE 40 MG TAB PO SCH ×2 (09:29→21:56)
[2021-10-03] MEDS: HEPARIN SODIUM (PORCINE) 5000 UNITS/ML 1ML VIAL SC SCH ×2 (09:39→21:58)
[2021-10-03] MEDS: NYSTATIN TOPICAL POWDER 15GM TOP SCH ×2 (11:19→22:06)
[2021-10-03] MEDS ORDERED: LACTULOSE 20Gm/30ML SOLN PO ONE (11:30)
[2021-10-03] MEDS: SODIUM FERR GLUC 62.5MG/5ML 125 MG in SODIUM CHL 0.9% 100 ML IV SCH (11:31)
[2021-10-03 13:00] VITALS: BP 198/102
[2021-10-03] MEDS: METOPROLOL TARTRATE 25 MG TAB PO SCH (14:33)
[2021-10-03 18:19] VITALS: BP 163/91
[2021-10-03] MEDS: SODIUM CHLORIDE 0.9% 1,000 ML IV SCH ×3 (20:09→23:30)
[2021-10-03] MEDS: LOSARTAN POTASSIUM 50 MG TAB PO SCH (21:56)
[2021-10-04] MEDS: OXYCODONE W/ ACETAMINOPHEN 5/325MG TABLET PO PRN ×6 (01:22→20:43)
[2021-10-04] MEDS: METOPROLOL TARTRATE 25 MG TAB PO SCH ×5 (01:23→18:17)
[2021-10-04 04:36] VITALS: BP 148/80
[2021-10-04] MEDS: SODIUM BICARBONATE 650 MG TAB PO SCH ×4 (05:23→22:12)
[2021-10-04] MEDS: D5W/SOD CHL 0.45%/KCL 20MEQ 1,000 ML IV SCH ×3 (05:24→19:45)
[2021-10-04] MEDS: metroNIDAZOLE 500MG/100ML 100 ML IV SCH ×3 (05:24→22:09)
[2021-10-04] MEDS: ACCU-CHEK COMFORT CURVE STRIP VI SCH ×4 (05:25→18:10)
[2021-10-04] MEDS: SODIUM CHLORIDE 0.9% 1,000 ML IV SCH ×3 (05:25→23:30)
[2021-10-04] MEDS: InsuLIN REG 1unit/0.01ml Soln (100units/ml) SC SCH ×4 (05:53→18:00)
[2021-10-04] MEDS: SUCRALFATE 1 GM/10 ML ORAL SUSP PO SCH ×4 (06:32→22:09)
[2021-10-04 06:58] LABS: Basophils # (auto) 0.1 10 ^3/uL (0-0.2); Basophils % (auto) 0.9 % (0.0-2.0); Eosinophils # (auto) 0.4 10 ^3/uL (0-0.8); Eosinophils % (auto) 2.8 % (0.0-7.0); Hematocrit 24.1 % (36.0-46.0); Hemoglobin 7.8 g/dL (12.2-16.2); Lymphocytes # (auto) 1.3 10 ^3/uL (0.4-5.4); Lymphocytes % (auto) 8.2 % (10.0-50.0); Mean Corpuscular Hgb Conc. 32.2 g/dL (32.0-36.0); Mean Corpuscular Volume 93.1 fL (80.0-100.0); Monocytes # (auto) 1.3 10 ^3/uL (0-1.3); Monocytes % (auto) 8.3 % (0.0-12.0); Neutrophils # (auto) 12.3 10 ^3/uL (1.6-8.6); Neutrophils % (auto) 79.8 % (37.0-80.0); Red Blood Cells 2.59 10^6/uL (4.0-5.20); White Blood Cell 15.4 10^3/uL (4.4-10.8)
[2021-10-04] MEDS: cefTRIAXone 1GM/50ML D5W 50 ML IV SCH (08:27)
[2021-10-04] MEDS: ONDANSETRON HCL 4 MG/2 ML VIAL IV PRN ×4 (08:28→17:44)
[2021-10-04 09:00] VITALS: BP 162/88
[2021-10-04] MEDS: PANTOPRAZOLE 40 MG TAB PO SCH ×2 (09:52→22:12)
[2021-10-04] MEDS: FLUCONAZOLE 100 MG TAB PO SCH (09:52)
[2021-10-04] MEDS: LOSARTAN POTASSIUM 50 MG TAB PO SCH ×2 (09:53→22:12)
[2021-10-04] MEDS: HEPARIN SODIUM (PORCINE) 5000 UNITS/ML 1ML VIAL SC SCH ×2 (09:57→22:13)
[2021-10-04] MEDS: NYSTATIN TOPICAL POWDER 15GM TOP SCH ×2 (11:56→22:00)
[2021-10-04 12:00] VITALS: BP 162/67
[2021-10-04] MEDS: SODIUM FERR GLUC 62.5MG/5ML 125 MG in SODIUM CHL 0.9% 100 ML IV SCH ×2 (12:00→16:28)
[2021-10-04 17:57] VITALS: BP 154/80
[2021-10-04 23:02] VITALS: BP 165/82
[2021-10-05] MEDS: METOPROLOL TARTRATE 25 MG TAB PO SCH ×2 (00:57→13:56)
[2021-10-05] MEDS: ONDANSETRON HCL 4 MG/2 ML VIAL IV PRN ×3 (01:31→12:30)
[2021-10-05] MEDS: OXYCODONE W/ ACETAMINOPHEN 5/325MG TABLET PO PRN ×2 (03:00→10:01)
[2021-10-05] MEDS: D5W/SOD CHL 0.45%/KCL 20MEQ 1,000 ML IV SCH ×4 (03:20→23:25)
[2021-10-05] MEDS: cloNIDine HCL 0.1 MG TAB PO PRN ×2 (04:44→21:00)
[2021-10-05 05:00] VITALS: BP 172/83
[2021-10-05] MEDS: ACCU-CHEK COMFORT CURVE STRIP VI SCH ×5 (05:55→23:22)
[2021-10-05] MEDS: SODIUM BICARBONATE 650 MG TAB PO SCH ×4 (05:55→23:18)
[2021-10-05] MEDS: metroNIDAZOLE 500MG/100ML 100 ML IV SCH ×3 (05:55→23:19)
[2021-10-05] MEDS: InsuLIN REG 1unit/0.01ml Soln (100units/ml) SC SCH ×5 (05:55→23:22)
[2021-10-05] MEDS: SUCRALFATE 1 GM/10 ML ORAL SUSP PO SCH ×4 (05:55→23:18)
[2021-10-05 07:15] LABS: Basophils # (auto) 0.2 10 ^3/uL (0-0.2); Monocytes # (auto) 1.3 10 ^3/uL (0-1.3); Nucleated Red Blood Cells % 0.1 %; White Blood Cell 12.8 10^3/uL (4.4-10.8)
[2021-10-05 07:18] LABS: Basophils % (auto) 1.4 % (0.0-2.0); Eosinophils # (auto) 0.6 10 ^3/uL (0-0.8); Hematocrit 24.2 % (36.0-46.0); Hemoglobin 7.6 g/dL (12.2-16.2); Lymphocytes # (auto) 1.5 10 ^3/uL (0.4-5.4); Mean Corpuscular Hemoglobin 30.9 pg (28.0-32.0); Mean Corpuscular Hgb Conc. 31.7 g/dL (32.0-36.0); Mean Corpuscular Volume 97.7 fL (80.0-100.0); Monocytes % (auto) 9.8 % (0.0-12.0); Neutrophils # (auto) 9.2 10 ^3/uL (1.6-8.6); Neutrophils % (auto) 71.8 % (37.0-80.0); Red Blood Cells 2.47 10^6/uL (4.0-5.20); Red Cell Distribution Width 19.9 % (11.8-14.3)
[2021-10-05 09:00] VITALS: BP 152/75
[2021-10-05] MEDS: cefTRIAXone 1GM/50ML D5W 50 ML IV SCH (09:59)
[2021-10-05] MEDS: FLUCONAZOLE 100 MG TAB PO SCH (09:59)
[2021-10-05] MEDS: PANTOPRAZOLE 40 MG TAB PO SCH ×2 (10:00→23:18)
[2021-10-05] MEDS: LOSARTAN POTASSIUM 50 MG TAB PO SCH ×2 (10:00→23:19)
[2021-10-05] MEDS: HEPARIN SODIUM (PORCINE) 5000 UNITS/ML 1ML VIAL SC SCH ×2 (10:53→23:21)
[2021-10-05] MEDS: NYSTATIN TOPICAL POWDER 15GM TOP SCH ×2 (12:14→23:20)
[2021-10-05 13:25] VITALS: BP 167/78
[2021-10-05 17:24] VITALS: BP 166/91
[2021-10-05] MEDS ORDERED: HYDROcodone-ACET 10/325MG TAB PO ONE (18:15)
[2021-10-05] MEDS ORDERED: FUROSEMIDE 40 MG/4 ML VIAL IV ONE (20:30)
[2021-10-05 22:00] VITALS: BP 163/86
[2021-10-06 05:00] VITALS: BP 170/88
[2021-10-06] MEDS: ACCU-CHEK COMFORT CURVE STRIP VI SCH ×3 (06:04→18:25)
[2021-10-06] MEDS: SODIUM BICARBONATE 650 MG TAB PO SCH ×4 (06:04→21:58)
[2021-10-06] MEDS: SUCRALFATE 1 GM/10 ML ORAL SUSP PO SCH ×4 (06:04→21:58)
[2021-10-06] MEDS: metroNIDAZOLE 500MG/100ML 100 ML IV SCH ×3 (06:04→22:00)
[2021-10-06] MEDS: InsuLIN REG 1unit/0.01ml Soln (100units/ml) SC SCH ×3 (06:16→18:42)
[2021-10-06 06:35] LABS: Basophils # (auto) 0.2 10 ^3/uL (0-0.2); Basophils % (auto) 1.7 % (0.0-2.0); Eosinophils # (auto) 0.7 10 ^3/uL (0-0.8); Eosinophils % (auto) 5.9 % (0.0-7.0); Hematocrit 23.4 % (36.0-46.0); Hemoglobin 7.7 g/dL (12.2-16.2); Lymphocytes # (auto) 1.5 10 ^3/uL (0.4-5.4); Mean Corpuscular Hemoglobin 30.4 pg (28.0-32.0); Mean Corpuscular Hgb Conc. 32.9 g/dL (32.0-36.0); Mean Corpuscular Volume 92.1 fL (80.0-100.0); Monocytes # (auto) 1.3 10 ^3/uL (0-1.3); Monocytes % (auto) 11.2 % (0.0-12.0); Neutrophils # (auto) 7.8 10 ^3/uL (1.6-8.6); Neutrophils % (auto) 68.2 % (37.0-80.0); Nucleated Red Blood Cells % 0.1 %; Red Blood Cells 2.54 10^6/uL (4.0-5.20); Red Cell Distribution Width 19.4 % (11.8-14.3); White Blood Cell 11.5 10^3/uL (4.4-10.8)
[2021-10-06] MEDS: ACETAMINOPHEN 325 MG TAB PO PRN (06:43)
[2021-10-06 09:00] VITALS: BP 154/89
[2021-10-06] MEDS: ONDANSETRON HCL 4 MG/2 ML VIAL IV PRN (10:10)
[2021-10-06] MEDS: PANTOPRAZOLE 40 MG TAB PO SCH ×2 (10:10→21:59)
[2021-10-06] MEDS: LOSARTAN POTASSIUM 50 MG TAB PO SCH ×2 (10:11→21:59)
[2021-10-06] MEDS: FLUCONAZOLE 100 MG TAB PO SCH (10:11)
[2021-10-06] MEDS: cefTRIAXone 1GM/50ML D5W 50 ML IV SCH (10:12)
[2021-10-06] MEDS: HEPARIN SODIUM (PORCINE) 5000 UNITS/ML 1ML VIAL SC SCH ×2 (10:22→22:09)
[2021-10-06] MEDS: D5W/SOD CHL 0.45%/KCL 20MEQ 1,000 ML IV SCH (10:49)
[2021-10-06] MEDS: NYSTATIN TOPICAL POWDER 15GM TOP SCH ×2 (10:50→22:00)
[2021-10-06] MEDS ORDERED: LEVO750T8 PO (11:26)
[2021-10-06] MEDS ORDERED: FLUC200T35 PO (11:26)
[2021-10-06] MEDS ORDERED: PANT40T PO (11:26)
[2021-10-06] MEDS ORDERED: METR500T PO (11:26)
[2021-10-06] MEDS ORDERED: FERR-7 PO (11:26)
[2021-10-06] MEDS ORDERED: PERCOT PO (11:26)
[2021-10-06] MEDS ORDERED: SUCR1TAB PO (11:26)
[2021-10-06 13:00] VITALS: BP 181/89
[2021-10-06] MEDS: METOPROLOL TARTRATE 25 MG TAB PO SCH (13:07)
[2021-10-06] MEDS: OXYCODONE W/ ACETAMINOPHEN 5/325MG TABLET PO PRN ×2 (13:08→18:30)
[2021-10-06 17:00] VITALS: BP 147/87
[2021-10-06 23:48] VITALS: BP 130/91
[2021-10-07] MEDS: METOPROLOL TARTRATE 25 MG TAB PO SCH ×2 (00:31→12:15)
[2021-10-07] MEDS: OXYCODONE W/ ACETAMINOPHEN 5/325MG TABLET PO PRN ×4 (00:32→18:20)
[2021-10-07 05:00] VITALS: BP 175/92
[2021-10-07] MEDS: InsuLIN REG 1unit/0.01ml Soln (100units/ml) SC SCH ×4 (06:00→18:00)
[2021-10-07] MEDS: SODIUM BICARBONATE 650 MG TAB PO SCH ×4 (06:23→21:45)
[2021-10-07] MEDS: SUCRALFATE 1 GM/10 ML ORAL SUSP PO SCH ×4 (06:23→21:45)
[2021-10-07] MEDS: ACCU-CHEK COMFORT CURVE STRIP VI SCH ×4 (06:23→18:14)
[2021-10-07] MEDS: metroNIDAZOLE 500MG/100ML 100 ML IV SCH ×3 (06:24→21:44)
[2021-10-07] MEDS: cloNIDine HCL 0.1 MG TAB PO PRN (06:40)
[2021-10-07] MEDS: ONDANSETRON HCL 4 MG/2 ML VIAL IV PRN ×2 (06:41→12:19)
[2021-10-07 09:00] VITALS: BP 185/91
[2021-10-07] MEDS: PANTOPRAZOLE 40 MG TAB PO SCH ×2 (10:57→21:45)
[2021-10-07] MEDS: FLUCONAZOLE 100 MG TAB PO SCH (10:57)
[2021-10-07] MEDS: cefTRIAXone 1GM/50ML D5W 50 ML IV SCH (11:01)
[2021-10-07] MEDS: LOSARTAN POTASSIUM 50 MG TAB PO SCH ×2 (11:02→21:45)
[2021-10-07] MEDS: HEPARIN SODIUM (PORCINE) 5000 UNITS/ML 1ML VIAL SC SCH ×2 (11:06→21:46)
[2021-10-07] MEDS: NYSTATIN TOPICAL POWDER 15GM TOP SCH ×2 (12:17→21:46)
[2021-10-07 13:07] VITALS: BP 164/97
[2021-10-07 16:08] VITALS: BP 152/88
[2021-10-07 22:00] VITALS: BP 156/86
[2021-10-08] MEDS: ACCU-CHEK COMFORT CURVE STRIP VI SCH ×4 (00:11→17:24)
[2021-10-08] MEDS: OXYCODONE W/ ACETAMINOPHEN 5/325MG TABLET PO PRN ×4 (00:21→18:04)
[2021-10-08] MEDS: METOPROLOL TARTRATE 25 MG TAB PO SCH ×2 (01:03→13:53)
[2021-10-08 05:00] VITALS: BP 148/79
[2021-10-08] MEDS: InsuLIN REG 1unit/0.01ml Soln (100units/ml) SC SCH ×4 (06:00→17:23)
[2021-10-08] MEDS: metroNIDAZOLE 500MG/100ML 100 ML IV SCH ×3 (06:11→23:27)
[2021-10-08] MEDS: SODIUM BICARBONATE 650 MG TAB PO SCH ×4 (06:11→23:29)
[2021-10-08] MEDS: SUCRALFATE 1 GM/10 ML ORAL SUSP PO SCH ×4 (06:39→23:29)
[2021-10-08 08:15] VITALS: BP 162/78
[2021-10-08] MEDS: cefTRIAXone 1GM/50ML D5W 50 ML IV SCH (08:55)
[2021-10-08 09:00] VITALS: BP 162/78
[2021-10-08] MEDS: ACETAMINOPHEN 325 MG TAB PO PRN ×2 (09:01→15:49)
[2021-10-08] MEDS: FLUCONAZOLE 100 MG TAB PO SCH (09:01)
[2021-10-08] MEDS: LOSARTAN POTASSIUM 50 MG TAB PO SCH ×2 (09:01→23:28)
[2021-10-08] MEDS: PANTOPRAZOLE 40 MG TAB PO SCH ×2 (09:01→23:29)
[2021-10-08] MEDS: HEPARIN SODIUM (PORCINE) 5000 UNITS/ML 1ML VIAL SC SCH ×2 (09:15→23:30)
[2021-10-08] MEDS: NYSTATIN TOPICAL POWDER 15GM TOP SCH ×2 (09:15→22:00)
[2021-10-08] MEDS: ONDANSETRON HCL 4 MG/2 ML VIAL IV PRN ×2 (12:02→18:03)
[2021-10-08 16:55] VITALS: BP 157/87
[2021-10-08 20:00] VITALS: BP 157/87
[2021-10-08 22:00] VITALS: BP 159/79
[2021-10-09] MEDS: OXYCODONE W/ ACETAMINOPHEN 5/325MG TABLET PO PRN ×4 (00:30→21:00)
[2021-10-09] MEDS: METOPROLOL TARTRATE 25 MG TAB PO SCH ×2 (01:15→12:13)
[2021-10-09 04:50] VITALS: BP 127/84
[2021-10-09] MEDS: ACCU-CHEK COMFORT CURVE STRIP VI SCH ×4 (05:30→18:06)
[2021-10-09] MEDS: InsuLIN REG 1unit/0.01ml Soln (100units/ml) SC SCH ×4 (06:00→18:00)
[2021-10-09] MEDS: metroNIDAZOLE 500MG/100ML 100 ML IV SCH ×3 (06:02→21:32)
[2021-10-09] MEDS: SODIUM BICARBONATE 650 MG TAB PO SCH ×4 (06:04→21:33)
[2021-10-09] MEDS: SUCRALFATE 1 GM/10 ML ORAL SUSP PO SCH ×4 (06:05→21:33)
[2021-10-09] MEDS: cefTRIAXone 1GM/50ML D5W 50 ML IV SCH (08:31)
[2021-10-09] MEDS: LOSARTAN POTASSIUM 50 MG TAB PO SCH ×2 (08:32→21:50)
[2021-10-09] MEDS: FLUCONAZOLE 100 MG TAB PO SCH (08:32)
[2021-10-09] MEDS: NYSTATIN TOPICAL POWDER 15GM TOP SCH ×2 (08:33→21:34)
[2021-10-09] MEDS: PANTOPRAZOLE 40 MG TAB PO SCH ×2 (08:33→21:33)
[2021-10-09] MEDS: ONDANSETRON HCL 4 MG/2 ML VIAL IV PRN ×2 (08:34→18:01)
[2021-10-09] MEDS: HEPARIN SODIUM (PORCINE) 5000 UNITS/ML 1ML VIAL SC SCH ×2 (08:53→21:34)
[2021-10-09 09:00] VITALS: BP 164/83
[2021-10-09] MEDS ORDERED: ERGOCALCIFEROL 50,000 UNIT(1.25MG) CAP PO SCH (10:15)
[2021-10-09 13:00] VITALS: BP 153/79
[2021-10-09] MEDS: cloNIDine HCL 0.1 MG TAB PO PRN (14:18)
[2021-10-09 16:34] VITALS: BP 157/91
[2021-10-09 22:15] VITALS: BP 166/75
[2021-10-10] VITALS (13 sets, daily range): BP systolic 101–173; BP diastolic 62–97
[2021-10-10] MEDS: ACCU-CHEK COMFORT CURVE STRIP VI SCH ×5 (00:25→23:27)
[2021-10-10] MEDS: METOPROLOL TARTRATE 25 MG TAB PO SCH ×2 (01:49→13:00)
[2021-10-10] MEDS: OXYCODONE W/ ACETAMINOPHEN 5/325MG TABLET PO PRN ×4 (03:19→22:19)
[2021-10-10 05:55] LABS: Albumin 1.6 g/dL (3.4-5.0); Calcium 7.8 mg/dL (8.5-10.1); Magnesium 1.6 mg/dL (1.6-2.6)
[2021-10-10 05:56] LABS: Hematocrit 21.4 % (36.0-46.0); Red Blood Cells 2.29 10^6/uL (4.0-5.20)
[2021-10-10 05:59] LABS: Mean Corpuscular Hemoglobin 30.1 pg (28.0-32.0); Mean Corpuscular Hgb Conc. 32.2 g/dL (32.0-36.0); Mean Corpuscular Volume 93.4 fL (80.0-100.0); Red Cell Distribution Width 19.2 % (11.8-14.3); White Blood Cell 9.6 10^3/uL (4.4-10.8)
[2021-10-10 06:00] LABS: BUN/Creatinine Ratio 4.3; Bilirubin, Total 0.2 mg/dL (0.2-1.0); Phosphorus 3.2 mg/dL (2.5-4.90); Total Protein 5.4 g/dL (6.4-8.2)
[2021-10-10] MEDS: InsuLIN REG 1unit/0.01ml Soln (100units/ml) SC SCH ×5 (06:00→23:27)
[2021-10-10] MEDS: metroNIDAZOLE 500MG/100ML 100 ML IV SCH ×3 (06:08→22:09)
[2021-10-10] MEDS: SODIUM BICARBONATE 650 MG TAB PO SCH ×4 (06:09→22:10)
[2021-10-10 06:25] LABS: Potassium 2.8 mmol/L (3.5-5.1)
[2021-10-10 06:27] LABS: Hemoglobin 6.9 g/dL (12.2-16.2)
[2021-10-10 06:28] LABS: Basophils % (manual) 0 (0.0-2.0); Blast Cells 0; Myelocytes % 0; Promyelocytes % 0; Reactive Lymphocytes 0
[2021-10-10] MEDS: SUCRALFATE 1 GM/10 ML ORAL SUSP PO SCH ×4 (06:49→22:10)
[2021-10-10] MEDS: ONDANSETRON HCL 4 MG/2 ML VIAL IV PRN ×2 (06:50→13:00)
[2021-10-10 08:04] LABS: Band Neutrophils % (manual) 3; Eosinophils % (manual) 3 (0-7); Lymphocytes % (manual) 17 (10.0-50.0); Metamyelocytes % 1; Monocytes % (manual) 11 (0-12)
[2021-10-10] MEDS: cefTRIAXone 1GM/50ML D5W 50 ML IV SCH (09:20)
[2021-10-10] MEDS: PANTOPRAZOLE 40 MG TAB PO SCH ×2 (09:20→22:10)
[2021-10-10] MEDS: FLUCONAZOLE 100 MG TAB PO SCH (09:20)
[2021-10-10] MEDS: LOSARTAN POTASSIUM 50 MG TAB PO SCH ×2 (09:23→22:18)
[2021-10-10] MEDS: NYSTATIN TOPICAL POWDER 15GM TOP SCH ×2 (09:24→22:11)
[2021-10-10] MEDS: HEPARIN SODIUM (PORCINE) 5000 UNITS/ML 1ML VIAL SC SCH ×2 (09:34→22:00)
[2021-10-10] MEDS ORDERED: POTASSIUM CHL 20 Meq TABLET PO ONE ×3 (11:00→20:45)
[2021-10-10] MEDS: cloNIDine HCL 0.1 MG TAB PO PRN (14:09)
[2021-10-10] MEDS: ACETAMINOPHEN 325 MG TAB PO PRN (14:43)
[2021-10-10] MEDS ORDERED: hydrALAZINE HCL 20 MG/ML VL IV ONE (16:00)
[2021-10-10] MEDS ORDERED: FUROSEMIDE 40 MG/4 ML VIAL IV ONE ×2 (16:00→20:45)
[2021-10-11 01:27] LABS: Basophils # (auto) 0.2 10 ^3/uL (0-0.2); Eosinophils # (auto) 0.5 10 ^3/uL (0-0.8); Hematocrit 24.7 % (36.0-46.0); Hemoglobin 8.1 g/dL (12.2-16.2)
[2021-10-11 01:29] LABS: Eosinophils % (auto) 4.8 % (0.0-7.0); Lymphocytes # (auto) 1.9 10 ^3/uL (0.4-5.4); Lymphocytes % (auto) 18.1 % (10.0-50.0); Mean Corpuscular Hgb Conc. 32.7 g/dL (32.0-36.0); Mean Corpuscular Volume 91.8 fL (80.0-100.0); Monocytes # (auto) 1.3 10 ^3/uL (0-1.3); Monocytes % (auto) 12.2 % (0.0-12.0); Neutrophils # (auto) 6.6 10 ^3/uL (1.6-8.6); Neutrophils % (auto) 62.9 % (37.0-80.0); Red Blood Cells 2.69 10^6/uL (4.0-5.20); Red Cell Distribution Width 18.8 % (11.8-14.3); White Blood Cell 10.4 10^3/uL (4.4-10.8)
[2021-10-11] MEDS: METOPROLOL TARTRATE 25 MG TAB PO SCH ×2 (01:33→14:05)
[2021-10-11 01:41] LABS: Albumin 1.7 g/dL (3.4-5.0); BUN/Creatinine Ratio 5.3
[2021-10-11 01:44] LABS: Bilirubin, Total 0.2 mg/dL (0.2-1.0); Total Protein 5.8 g/dL (6.4-8.2)
[2021-10-11 01:48] LABS: INR 1.07 (0.9-1.15)
[2021-10-11 01:58] LABS: Potassium 2.6 mmol/L (3.5-5.1)
[2021-10-11] MEDS ORDERED: POTASSIUM CHL 20 Meq TABLET PO ONE (02:15)
[2021-10-11] MEDS: OXYCODONE W/ ACETAMINOPHEN 5/325MG TABLET PO PRN ×4 (04:53→23:04)
[2021-10-11 04:55] VITALS: BP 151/72
[2021-10-11] MEDS: InsuLIN REG 1unit/0.01ml Soln (100units/ml) SC SCH ×4 (06:00→23:22)
[2021-10-11] MEDS: metroNIDAZOLE 500MG/100ML 100 ML IV SCH ×3 (06:26→22:07)
[2021-10-11] MEDS: ACCU-CHEK COMFORT CURVE STRIP VI SCH ×4 (06:27→23:18)
[2021-10-11] MEDS: SODIUM BICARBONATE 650 MG TAB PO SCH ×4 (06:27→22:08)
[2021-10-11] MEDS: SUCRALFATE 1 GM/10 ML ORAL SUSP PO SCH (06:28)
[2021-10-11 06:34] LABS: Calcium 8.1 mg/dL (8.5-10.1)
[2021-10-11 06:36] LABS: Albumin 1.7 g/dL (3.4-5.0); BUN/Creatinine Ratio 4.6
[2021-10-11 06:39] LABS: Bilirubin, Total 0.2 mg/dL (0.2-1.0); Total Protein 5.8 g/dL (6.4-8.2)
[2021-10-11 06:42] LABS: Potassium 2.9 mmol/L (3.5-5.1)
[2021-10-11] MEDS: LOSARTAN POTASSIUM 50 MG TAB PO SCH ×2 (08:25→22:13)
[2021-10-11] MEDS: ACETAMINOPHEN 325 MG TAB PO PRN ×2 (08:25→15:16)
[2021-10-11] MEDS: cefTRIAXone 1GM/50ML D5W 50 ML IV SCH (08:25)
[2021-10-11] MEDS: FLUCONAZOLE 100 MG TAB PO SCH (08:26)
[2021-10-11] MEDS: POTASSIUM CHL 20MEQ/100ML 100 ML IV SCH ×3 (08:27→11:36)
[2021-10-11 08:30] VITALS: BP 152/87
[2021-10-11] MEDS: PANTOPRAZOLE 40 MG TAB PO SCH ×2 (08:33→22:16)
[2021-10-11] MEDS ORDERED: POTASSIUM CHLORIDE 60 MEQ, LIDOCAINE 1% (LOCAL ANESTH.) 6 ML in SODIUM CHL 0.9% 500 ML IV ONE (09:15)
[2021-10-11] MEDS: NYSTATIN TOPICAL POWDER 15GM TOP SCH ×2 (10:24→22:17)
[2021-10-11] MEDS: HEPARIN SODIUM (PORCINE) 5000 UNITS/ML 1ML VIAL SC SCH ×2 (10:27→22:17)
[2021-10-11 13:00] VITALS: BP 132/84
[2021-10-11] MEDS: POTASSIUM CHL 20 Meq TABLET PO SCH (16:51)
[2021-10-11] MEDS: cloNIDine HCL 0.1 MG TAB PO PRN (16:54)
[2021-10-11 17:00] VITALS: BP 162/92
[2021-10-12 01:02] VITALS: BP 165/88
[2021-10-12] MEDS: METOPROLOL TARTRATE 25 MG TAB PO SCH ×2 (01:25→13:19)
[2021-10-12] MEDS: ACETAMINOPHEN 325 MG TAB PO PRN ×3 (01:30→22:33)
[2021-10-12 05:06] VITALS: BP 162/85
[2021-10-12] MEDS: metroNIDAZOLE 500MG/100ML 100 ML IV SCH ×3 (05:20→22:17)
[2021-10-12] MEDS: OXYCODONE W/ ACETAMINOPHEN 5/325MG TABLET PO PRN ×4 (05:21→23:47)
[2021-10-12] MEDS: SODIUM BICARBONATE 650 MG TAB PO SCH ×4 (05:21→22:18)
[2021-10-12] MEDS: InsuLIN REG 1unit/0.01ml Soln (100units/ml) SC SCH ×4 (05:34→22:20)
[2021-10-12] MEDS: ACCU-CHEK COMFORT CURVE STRIP VI SCH ×4 (05:34→22:19)
[2021-10-12] MEDS: cloNIDine HCL 0.1 MG TAB PO PRN (05:56)
[2021-10-12] MEDS: FLUCONAZOLE 100 MG TAB PO SCH (08:43)
[2021-10-12] MEDS: cefTRIAXone 1GM/50ML D5W 50 ML IV SCH (08:43)
[2021-10-12] MEDS: POTASSIUM CHL 20 Meq TABLET PO SCH (08:44)
[2021-10-12] MEDS: NYSTATIN TOPICAL POWDER 15GM TOP SCH ×2 (08:44→22:19)
[2021-10-12] MEDS: PANTOPRAZOLE 40 MG TAB PO SCH ×2 (08:44→22:18)
[2021-10-12] MEDS: LOSARTAN POTASSIUM 50 MG TAB PO SCH ×2 (08:44→22:18)
[2021-10-12 09:21] VITALS: BP 170/80
[2021-10-12] MEDS: HEPARIN SODIUM (PORCINE) 5000 UNITS/ML 1ML VIAL SC SCH ×2 (11:31→22:28)
[2021-10-12 13:00] VITALS: BP 149/80
[2021-10-12 17:00] VITALS: BP 155/75
[2021-10-12 22:00] VITALS: BP 154/79
[2021-10-13] MEDS: METOPROLOL TARTRATE 25 MG TAB PO SCH ×2 (01:18→12:45)
[2021-10-13] MEDS: cloNIDine HCL 0.1 MG TAB PO PRN (02:55)
[2021-10-13] MEDS: ACETAMINOPHEN 325 MG TAB PO PRN ×2 (04:49→16:51)
[2021-10-13 05:00] VITALS: BP_SYST 176; BP_SYST 190; BP_DIAS 95; BP_DIAS 98
[2021-10-13] MEDS: metroNIDAZOLE 500MG/100ML 100 ML IV SCH ×2 (05:14→14:52)
[2021-10-13] MEDS: SODIUM BICARBONATE 650 MG TAB PO SCH ×3 (05:14→18:34)
[2021-10-13] MEDS ORDERED: hydrALAZINE HCL 20 MG/ML VL IV ONE (05:30)
[2021-10-13] MEDS: ACCU-CHEK COMFORT CURVE STRIP VI SCH ×3 (05:44→18:34)
[2021-10-13] MEDS: InsuLIN REG 1unit/0.01ml Soln (100units/ml) SC SCH ×3 (05:44→18:35)
[2021-10-13] MEDS: OXYCODONE W/ ACETAMINOPHEN 5/325MG TABLET PO PRN ×3 (05:45→18:34)
[2021-10-13 08:05] VITALS: BP 170/96
[2021-10-13 09:00] VITALS: BP 170/96
[2021-10-13] MEDS: cefTRIAXone 1GM/50ML D5W 50 ML IV SCH (09:42)
[2021-10-13] MEDS: LOSARTAN POTASSIUM 50 MG TAB PO SCH (09:46)
[2021-10-13] MEDS: ONDANSETRON HCL 4 MG/2 ML VIAL IV PRN (09:47)
[2021-10-13] MEDS: PANTOPRAZOLE 40 MG TAB PO SCH (09:47)
[2021-10-13] MEDS: FLUCONAZOLE 100 MG TAB PO SCH (09:47)
[2021-10-13] MEDS: POTASSIUM CHL 20 Meq TABLET PO SCH (09:47)
[2021-10-13] MEDS: HEPARIN SODIUM (PORCINE) 5000 UNITS/ML 1ML VIAL SC SCH (09:59)
[2021-10-13] MEDS: NYSTATIN TOPICAL POWDER 15GM TOP SCH (10:00)
[2021-10-13 10:37] LABS: Basophils # (auto) 0.2 10 ^3/uL (0-0.2); Hemoglobin 8.2 g/dL (12.2-16.2)
[2021-10-13 10:42] LABS: Basophils % (auto) 2.2 % (0.0-2.0); Eosinophils # (auto) 0.5 10 ^3/uL (0-0.8); Eosinophils % (auto) 4.7 % (0.0-7.0); Hematocrit 25.4 % (36.0-46.0); Lymphocytes # (auto) 1.8 10 ^3/uL (0.4-5.4); Lymphocytes % (auto) 17.2 % (10.0-50.0); Mean Corpuscular Hgb Conc. 32.4 g/dL (32.0-36.0); Mean Corpuscular Volume 92.5 fL (80.0-100.0); Monocytes % (auto) 9.5 % (0.0-12.0); Neutrophils % (auto) 66.4 % (37.0-80.0); Nucleated Red Blood Cells % 0.1 %; Red Blood Cells 2.75 10^6/uL (4.0-5.20); White Blood Cell 10.6 10^3/uL (4.4-10.8)
[2021-10-13 10:46] LABS: Albumin 1.7 g/dL (3.4-5.0); Calcium 8.3 mg/dL (8.5-10.1); Potassium 4.6 mmol/L (3.5-5.1)
[2021-10-13 10:50] LABS: BUN/Creatinine Ratio 6.3; Bilirubin, Total 0.2 mg/dL (0.2-1.0); Total Protein 5.9 g/dL (6.4-8.2)
[2021-10-13 13:00] VITALS: BP 128/92
[2021-10-13 17:00] VITALS: BP 161/95
== END 2021-10-13 20:02 | DRG 853 ==
LOC: EDBD 10:36 → ER 10:36 → EDUNIT# 10:36 → OVERFLOW 15:29 → WEST WING 21:45
PROVIDERS: ADMIT Registered Nurse; ATTEND Family Medicine
PROC: 0DB68ZX Excision of Stomach, Via Natural or Artificial Opening Endoscopic, Diagnostic (ICD-10-PCS; 2021-09-25)
PROC: 0D758ZZ Dilation of Esophagus, Via Natural or Artificial Opening Endoscopic (ICD-10-PCS; principal; 2021-09-25 09:26)
PROC: 0FT44ZZ Resection of Gallbladder, Percutaneous Endoscopic Approach (ICD-10-PCS; 2021-09-30)
PROC: 30233N1 Transfusion of Nonautologous Red Blood Cells into Peripheral Vein, Percutaneous Approach (ICD-10-PCS; 2021-10-01)
PROC: 05HB33Z Insertion of Infusion Device into Right Basilic Vein, Percutaneous Approach (ICD-10-PCS; 2021-10-02)
PROC: B54MZZA Ultrasonography of Right Upper Extremity Veins, Guidance (ICD-10-PCS; 2021-10-02)
DX: A41.9 Sepsis, unspecified organism (principal); N17.0 Acute kidney failure with tubular necrosis; J96.01 Acute respiratory failure with hypoxia; R65.21 Severe sepsis with septic shock; J18.9 Pneumonia, unspecified organism; E46 Unspecified protein-calorie malnutrition; K80.00 Calculus of gallbladder with acute cholecystitis without obstruction; N39.0 Urinary tract infection, site not specified; R62.7 Adult failure to thrive; K22.2 Esophageal obstruction; K29.70 Gastritis, unspecified, without bleeding; K66.0 Peritoneal adhesions (postprocedural) (postinfection); M54.9 Dorsalgia, unspecified; N18.9 Chronic kidney disease, unspecified; Z20.822 Contact with and (suspected) exposure to COVID-19; Z53.20 Procedure and treatment not carried out because of patient's decision for unspecified reasons; D63.8 Anemia in other chronic diseases classified elsewhere; E11.65 Type 2 diabetes mellitus with hyperglycemia; E78.5 Hyperlipidemia, unspecified; E86.0 Dehydration; E87.6 Hypokalemia; L30.4 Erythema intertrigo; R65.20 Severe sepsis without septic shock; G89.29 Other chronic pain; K42.9 Umbilical hernia without obstruction or gangrene; E66.01 Morbid (severe) obesity due to excess calories; K21.00 Gastro-esophageal reflux disease with esophagitis, without bleeding; D50.9 Iron deficiency anemia, unspecified; E78.00 Pure hypercholesterolemia, unspecified; E11.22 Type 2 diabetes mellitus with diabetic chronic kidney disease; I12.9 Hypertensive chronic kidney disease with stage 1 through stage 4 chronic kidney disease, or unspecified chronic kidney disease; M10.9 Gout, unspecified; Z79.4 Long term (current) use of insulin; Z68.36 Body mass index [BMI] 36.0-36.9, adult; Z74.01 Bed confinement status; Z79.84 Long term (current) use of oral hypoglycemic drugs; Z86.73 Personal history of transient ischemic attack (TIA), and cerebral infarction without residual deficits; Z79.899 Other long term (current) drug therapy
CPT/HCPCS: 36415; 70450; 71045; 71101; 73562; 73590; 76705; 76775; 78226; 80048; 80053; 80061; 80320; 81001; 82247; 82570; 82962; 83036; 83605; 83735; 83880; 84100; 84156; 84300; 84484; 85007; 85025; 85027; 85610; 85730; 86850; 86900; 86901; 86920; 87040; 87070; 87075; 87086; 87088; 87205; 92610; 93005; 93306; 93886; 96365; 96368; 97110; 97116; 97163; 97530; 99291; G0378; J0330; J0690; J0696; J1100; J1815; J2001; J2250; J2405; J2704; J3480; J3490

== ENCOUNTER → 2021-12-02 | Outpatient (CLI) | payer OTHER ==
[~2021-12-02] MED LIST changes: +COLC1TAB3 PO; -COLCPOW2 PO; +FERR-7 PO; +FLUC200T35 PO; -HYDR-4798 PO; +LEVO750T8 PO; -LOSA-39 PO; +LOSA-69 PO; +METR500T PO; +PANT40T PO; +PERCOT PO; +SUCR1TAB PO
[2021-12-02 11:57] LABS: Basophils # (auto) 0.1 10 ^3/uL (0-0.2); Basophils % (auto) 1.2 % (0.0-2.0); Eosinophils # (auto) 0.3 10 ^3/uL (0-0.8); Eosinophils % (auto) 2.5 % (0.0-7.0); Hematocrit 36.6 % (36.0-46.0); Hemoglobin 11.3 g/dL (12.2-16.2); Lymphocytes # (auto) 1.3 10 ^3/uL (0.4-5.4); Lymphocytes % (auto) 12.3 % (10.0-50.0); Mean Corpuscular Hemoglobin 28.1 pg (28.0-32.0); Mean Corpuscular Volume 90.9 fL (80.0-100.0); Monocytes # (auto) 0.5 10 ^3/uL (0-1.3); Monocytes % (auto) 4.6 % (0.0-12.0); Neutrophils # (auto) 8.3 10 ^3/uL (1.6-8.6); Neutrophils % (auto) 79.4 % (37.0-80.0); Red Blood Cells 4.03 10^6/uL (4.0-5.20); Red Cell Distribution Width 19.7 % (11.8-14.3); White Blood Cell 10.4 10^3/uL (4.4-10.8)
[2021-12-02 12:06] LABS: Urine Bacteria NONE SEEN /hpf (None Seen); Urine Blood 1+ /uL (Negative); Urine Specific Gravity 1.015 (1.001-1.035); Urine WBC 706 /hpf (0 - 5); Urine WBC Clumps PRESENT /hpf (None Seen)
[2021-12-02 12:34] LABS: Albumin 3.3 g/dL (3.4-5.0); Potassium 4.6 mmol/L (3.5-5.1)
[2021-12-02 12:40] LABS: BUN/Creatinine Ratio 12.1; Bilirubin, Total 0.4 mg/dL (0.2-1.0); Calcium 9.4 mg/dL (8.5-10.1); Magnesium 1.8 mg/dL (1.6-2.6); Phosphorus 3.7 mg/dL (2.5-4.90)
[2021-12-02 13:03] LABS: % Iron Saturation 21.5 % (15-50)
== END | disposition home or self-care (01) ==
LOC: LAB 11:29
PROVIDERS: ATTEND Internal Medicine Nephrology
DX: I12.9 Hypertensive chronic kidney disease with stage 1 through stage 4 chronic kidney disease, or unspecified chronic kidney disease (principal); N18.31 Chronic kidney disease, stage 3a
CPT/HCPCS: 36415; 80053; 81001; 82306; 82728; 83036; 83540; 83550; 83735; 84100; 85025

== ENCOUNTER → 2022-01-14 | Outpatient (CLI) | payer OTHER ==
[2022-01-14 12:58] LABS: Albumin 3.2 g/dL (3.4-5.0); Calcium 9.9 mg/dL (8.5-10.1); Potassium 5.4 mmol/L (3.5-5.1)
[2022-01-14 13:01] LABS: BUN/Creatinine Ratio 14.6; Bilirubin, Total 0.2 mg/dL (0.2-1.0); Total Protein 7.5 g/dL (6.4-8.2)
== END | disposition home or self-care (01) ==
LOC: LAB 12:02
PROVIDERS: ATTEND Internal Medicine Nephrology
DX: N18.32 Chronic kidney disease, stage 3b (principal)
CPT/HCPCS: 36415; 80053

== ENCOUNTER → 2022-01-21 | Outpatient (CLI) | payer OTHER ==
[2022-01-21 13:00] LABS: Basophils # (auto) 0.1 10 ^3/uL (0-0.2); Basophils % (auto) 1.3 % (0.0-2.0); Eosinophils # (auto) 0.4 10 ^3/uL (0-0.8); Eosinophils % (auto) 3.7 % (0.0-7.0); Hematocrit 33.2 % (36.0-46.0); Hemoglobin 10.6 g/dL (12.2-16.2); Lymphocytes # (auto) 3.1 10 ^3/uL (0.4-5.4); Lymphocytes % (auto) 28.8 % (10.0-50.0); Mean Corpuscular Hemoglobin 29.6 pg (28.0-32.0); Mean Corpuscular Volume 92.6 fL (80.0-100.0); Monocytes # (auto) 0.9 10 ^3/uL (0-1.3); Monocytes % (auto) 8.3 % (0.0-12.0); Neutrophils # (auto) 6.2 10 ^3/uL (1.6-8.6); Neutrophils % (auto) 57.9 % (37.0-80.0); Red Blood Cells 3.59 10^6/uL (4.0-5.20); Red Cell Distribution Width 21.7 % (11.8-14.3); White Blood Cell 10.7 10^3/uL (4.4-10.8)
[2022-01-21 13:11] LABS: BUN/Creatinine Ratio 14.3; Calcium 8.9 mg/dL (8.5-10.1); Potassium 4.4 mmol/L (3.5-5.1)
== END | disposition home or self-care (01) ==
LOC: LAB 12:19
PROVIDERS: ATTEND Internal Medicine Nephrology
DX: N17.9 Acute kidney failure, unspecified (principal)
CPT/HCPCS: 36415; 80048; 83036; 85025

== ENCOUNTER → 2022-02-11 | Outpatient (CLI) | payer OTHER ==
[2022-02-11 13:04] LABS: Calcium 8.9 mg/dL (8.5-10.1); Potassium 4.4 mmol/L (3.5-5.1)
[2022-02-11 13:21] LABS: Albumin 3.1 g/dL (3.4-5.0); BUN/Creatinine Ratio 11.4; Bilirubin, Total 0.2 mg/dL (0.2-1.0); Total Protein 6.9 g/dL (6.4-8.2)
== END | disposition home or self-care (01) ==
LOC: LAB 12:06
PROVIDERS: ATTEND Internal Medicine Nephrology
DX: N18.4 Chronic kidney disease, stage 4 (severe) (principal); M06.9 Rheumatoid arthritis, unspecified; R80.9 Proteinuria, unspecified
CPT/HCPCS: 36415; 80053; 86038; 86200; 86256; 86431; 86703; 86803; 87340

== ENCOUNTER 2024-10-02 13:46 | Outpatient (CLI) | payer OTHER ==
[~2024-10-02 13:46] MED LIST changes: +FLUC200T PO; -FLUC200T35 PO; +LOSA-534 PO; -LOSA-69 PO; -METF500S PO; +METF500S3 PO
[2024-10-02 14:27] LABS: Chloride 107 mmol/L (98-107); Potassium 4.9 mmol/L (3.5-5.1); Sodium 140 mmol/L (136-145)
[2024-10-02 14:28] LABS: Anion Gap 7 (5-15); Carbon Dioxide 26 mmol/L (20-31)
[2024-10-02 14:33] LABS: BUN/Creatinine Ratio 13.7 (10.0-20.0)
[2024-10-02 14:36] LABS: Blood Urea Nitrogen 29 mg/dL (9-23); Glucose 221 mg/dL (74-106)
== END 2024-10-02 17:00 | disposition home or self-care (01) ==
LOC: LAB 13:46
PROVIDERS: ATTEND Internal Medicine
DX: E87.5 Hyperkalemia (principal)
CPT/HCPCS: 36415; 80048